=== PATIENT | female | born 1990 | race African-American/Black ===

== ENCOUNTER 2024-01-27 04:34 | Emergency (ER) | payer MEDICAID ==
[~2024-01-27] VITALS: Ht 152.4 cm; Wt 55.0 kg
[2024-01-27 04:47] VITALS: BP 142/68; TEMP 98.3; O2SAT 100
[2024-01-27 04:58] VITALS: PULSE 84; RESP 16
[2024-01-27 05:52] LABS: BASOPHILS % 0.9 % (0.0-2.0); DIFFERENTIAL COMMENT 0; EOSINOPHILS % 3.3 % (0.0-5.0); HEMATOCRIT. 29.3 % (36.0-48.0); LYMPHOCYTES % 33.2 % (20.0-50.0); MEAN CORPUSCULAR HEMOGLOBIN 23.4 pg (28.0-32.0); MEAN CORPUSCULAR HGB CONC 30.8 g/dL (31.0-37.0); MEAN CORPUSCULAR VOLUME 76.1 fL (81.0-99.0); MEAN PLATELET VOLUME 7.3 fl (7.4-10.4); MONOCYTES % 12.4 % (2.0-8.0); NEUTROPHILS % 50.2 % (40.0-76.0); PLATELET 366 x1000/uL (130-400); RED BLOOD CELL COUNT 3.85 mill/uL (4.2-5.4); RED CELL DISTRIBUTION WIDTH 20.3 % (11.6-14.6); WHITE BLOOD COUNT 5.7 x1000/uL (4.5-11.0)
[2024-01-27 06:01] LABS: CHLORIDE 112 mEq/L (98-107); POTASSIUM 4.3 mEq/L (3.5-5.1); SODIUM 139 mEq/L (136-145)
[2024-01-27 06:02] LABS: CALCIUM 8.6 mg/dL (8.7-10.4); CARBON DIOXIDE 24 mEq/L (21-32)
[2024-01-27 06:06] LABS: HCG SCREEN NEGATIVE
[2024-01-27 06:07] LABS: CREATININE 0.8 mg/dL (0.6-1.0); GLUCOSE 95 mg/dL (70-105); UREA NITROGEN BLOOD 8 mg/dL (9-23)
[2024-01-27] MEDS ORDERED: NA P230E RC (06:28)
== END 2024-01-27 08:08 | disposition home or self-care (01) ==
LOC: ER 04:34
DX: K59.00 Constipation, unspecified (principal)
CPT/HCPCS: 36415; 80048; 84703; 85025; 99283